=== PATIENT | female | born 1990 | race Caucasian/White ===

== ENCOUNTER 2016-06-26 14:13 | Outpatient (CLI) | payer OTHER ==
[2015-09-01 17:23] VITALS: BP 135/93
== END 2016-06-26 14:14 ==
LOC: LAB 14:13
PROVIDERS: ATTEND Physician Assistant
DX: Z87.898 Personal history of other specified conditions (principal); Z01.419 Encounter for gynecological examination (general) (routine) without abnormal findings
CPT/HCPCS: 36415; 86703; 86803; 87491; 87591; 87798; 88148; G0143

== ENCOUNTER 2017-04-14 10:48 | Outpatient (CLI) | payer OTHER ==
[2015-09-01 17:23] VITALS: BP 135/93
== END 2017-04-14 10:50 ==
LOC: LABRHC 10:48
PROVIDERS: ATTEND Physician Assistant
DX: Z20.2 Contact with and (suspected) exposure to infections with a predominantly sexual mode of transmission (principal)
CPT/HCPCS: 87491; 87591